=== PATIENT | male | born 1990 | race Caucasian/White ===

== ENCOUNTER 2018-08-02 05:32 | Emergency (ER) | payer SELFPAY ==
[~2018-08-02] VITALS: Ht 177.8 cm; Wt 77.1 kg
[2018-08-02] MEDS ORDERED: MORPHINE SULFATE 2 MG/ML VIAL. IV/SQ PRN (06:00)
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
[2018-08-02] MEDS ORDERED: LIDOCAINE WITH 8.4% SOD BICARB 3 ML DISP.SYRIN. ONE (06:26)
[2018-08-02] MEDS ORDERED: LIDOCAINE 1% PF 2 ML VIAL. ONE (06:28)
[2018-08-02] MEDS ORDERED: LIDOCAINE 1% Multi-Dose 20 ML VIAL. ONE (06:28)
[2018-08-02] MEDS ORDERED: LIDOCAINE 1%/EPI 1:100,000 20 ML VIAL. INJ ONE (06:30)
[2018-08-02] MEDS ORDERED: LIDOCAINE 1%/EPI 1:100,000 20 ML VIAL. ONE (06:31)
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
[2018-08-02] MEDS ORDERED: HYDROcodone/APAP 5/325MG 1 TAB TABLET PO ONE (07:45)
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
[2018-08-02] MEDS ORDERED: HYDR-3164 PO (08:19)
[2018-08-02] MEDS ORDERED: CEPH500T PO (08:19)
[2018-08-02 08:30] VITALS: BP 134/81
== END 2018-08-02 08:56 | disposition home or self-care (01) ==
LOC: ER 05:32
DX: S01.01XA Laceration without foreign body of scalp, initial encounter (principal); S06.0X0A Concussion without loss of consciousness, initial encounter; F11.20 Opioid dependence, uncomplicated; Y08.89XA Assault by other specified means, initial encounter; Y93.89 Activity, other specified; Y92.89 Other specified places as the place of occurrence of the external cause; Y99.8 Other external cause status
CPT/HCPCS: 12004; 70450; 71045; 72125; 72170; 99284; J3490; 12002